=== PATIENT | male | born 1970 | race Two or more races ===

== ENCOUNTER 2019-05-22 12:18 | Emergency (ER) | payer OTHER ==
--- NOTE | 2019-05-22 12:21 | PDOC ---
Rapid Medical Evaluation Chief Complaint: Back Pain Medical Evaluation: Allergies Allergy/AdvReac Type Severity Reaction Status Date / Time No Known Allergies Allergy Verified 06/11/16 21:54 05/22/19 12:20 I have performed a brief in-person evaluation of this patient. The patient presents with a chief complaint of: standing a long time this weekend and now back pain, hx of pinched nerves Pertinent physical exam findings: ambulatory, uncomfortable appearing I have ordered the following:toradol The patient will proceed to the ED for further evaluation. Discharge Disposition - Diagnosis Back pain - Referrals - Patient Instructions - Post Discharge Activity
[2019-05-22 12:22] VITALS: BP 123/86; PULSE 65; TEMP 98; BMI 30.7
[2019-05-22] MEDS ORDERED: KETOROLAC TROMETHAMINE 60 MG/2 ML VIAL IM ONE (12:23)
[2019-05-22] MEDS ORDERED: diazePAM 5 MG TABLET PO ONE (13:30)
[2019-05-22] MEDS ORDERED: KETOROLAC TROMETHAMINE 30 MG/1 ML VIAL ONE (13:33)
--- NOTE | 2019-05-22 13:36 | PDOC ---
History of Present Illness - General Chief Complaint: Back Pain Stated Complaint: LOWER BACK PAIN Time Seen by Provider: 05/22/19 12:22 History Source: Patient Exam Limitations: No Limitations - History of Present Illness Initial Comments: 05/22/19 13:31 CHIEF COMPLAINT: Lower back pain HISTORY OF PRESENT ILLNESS: This is a 48-year-old male history of lumbar radiculopathy and lumbar disc herniations presents emergency department for evaluation of right-sided lower back pain which started 2 days ago. Patient reports prolonged episodes of standing Wednesday evening when the pain had started in his lower back. Patient reports taking 800 mg of Motrin which dropped his pain from a 10/10 to a 7/10. Patient also with left upper back pain which is localized to the trapezius area. Patient then denies any radiation of the pain, neurosensory deficits, incontinence of bladder or bowel, urinary retention, saddle anesthesia, foot drop, history of IV drug use or history of cancer. REVIEW OF SYSTEMS: GENERAL: Afebrile, denies any weakness RESPIRATORY: No cough, wheezing, or hemoptysis. CARDIAC: No chest pain or shortness of breath MUSCULOSKELETAL: Pain to generalized lower back. No point tenderness. Pain worse on right than left. SKIN : No erythema, no bruising, no deformity. GI/: Denies any abdominal pain, no urinary difficulty, incontinence or urinary retention. RECTAL: Denies any difficulty this A.m. NEUROLOGICAL: Denies any numbness or tingling. No neurosensory deficits. PHYSICAL EXAM: GENERAL: The patient is awake, alert, and fully oriented, in no acute distress. RESPIRATORY: Lungs clear bilaterally, no rhonchi wheezes or crackles CARDIAC: S1-S2 audible, no murmur rub or gallop MUSCULOSKELETAL: Pain to right lower back, nonradiating, no tingling or sensory deficit. Less than 2 second cap refill, +2 pedal pulses. No spinal point tenderness. Normal reflexive and no deficits to sensation or strength. Performs straight leg raises without difficulty. Palpable muscle spasm to right paraspinous muscles. GI/: Abdomen soft, nontender, nondistended. No rebound tenderness. No masses palpable. RECTAL: Deferred patient with no neurological findings SKIN: Warm, Dry, normal turgor, no erythema, no edema no bruising. 05/22/19 13:36 Past History - Past Medical History Allergies/Adverse Reactions: Allergies Allergy/AdvReac Type Severity Reaction Status Date / Time No Known Allergies Allergy Verified 05/22/19 12:22 Home Medications: Ambulatory Orders Glycerin [Permed Hair Shampoo] 180 ml TP DAILY #1 shampoo 05/02/15 Ibuprofen 800 mg PO TID #30 tablet 06/12/16 Methocarbamol [Robaxin -] 1,000 mg PO TID #42 tablet 05/22/19 COPD: No Other medical history: PINCHED NERVES - Suicide/Smoking/Psychosocial Hx Smoking Status: Yes Smoking History: Never smoked Number of Cigarettes Smoked Daily: 0 Information on smoking cessation initiated: No Hx Alcohol Use: No Drug/Substance Use Hx: No Substance Use Type: None *Physical Exam - Vital Signs Last Vital Signs Temp Pulse Resp BP Pulse Ox 98 F 65 19 123/86 95 05/22/19 12:20 05/22/19 12:20 05/22/19 12:20 05/22/19 12:20 05/22/19 12:20 Medical Decision Making - Medical Decision Making 05/22/19 13:37 A/P: 48-year-old male with right lumbar paraspinous muscle spasm and left trapezius muscle spasm Toradol 60 mg IM now Valium 5 mg orally now Reassess 05/22/19 14:13 Patient reports improvement in pain currently rating his pain 4/10. Patient is requesting discharge at this time. As patient is clinically improved I will discharge home with a prescription for Robaxin and instructions to take over-the -counter NSAID medication for pain relief. Patient has verbalized understanding of discharge instructions. Portions of this note have been documented using voice recognition software. As a result, errors may occur in the bus and rail operator process. Effort has been made to correct all grammatical and bus and rail operator error, but some may have been missed. *DC/Admit/Observation/Transfer Diagnosis at time of Disposition: Muscle spasm of back - Discharge Dispostion Disposition: HOME Condition at time of disposition: Stable Decision to Admit order: No - Prescriptions Prescriptions: Methocarbamol [Robaxin -] 1,000 mg PO TID #42 tablet - Referrals Referrals: Mike Velázquez MD [Primary Care Provider] - - Patient Instructions Additional Instructions: Rest, no heavy lifting or exercise until pain is resolved Hot soaks to neck and low back as often as possible/hot showers or Jacuzzis No massage or therapy until spasm is gone Continue naproxen 2-220 mg tablets every 12 hours for the next 3 days then as needed for pain and swelling Robaxin 1000mg every 8 hours as needed for spasm If not significant improvement within 24 hours with medication and rest regime, followup with private physician for change in medications and /or therapy. - Post Discharge Activity
== END 2019-05-22 14:49 | disposition home or self-care (01) ==
LOC: JERFT 12:18
PROC: 3E0233Z Introduction of Anti-inflammatory into Muscle, Percutaneous Approach (ICD-10-PCS; principal; 2019-05-22)
DX: M62.830 Muscle spasm of back (principal); M51.16 Intervertebral disc disorders with radiculopathy, lumbar region
CPT/HCPCS: 96372; 99281-25

== ENCOUNTER 2019-10-11 08:16 | Emergency (ER) | payer OTHER ==
[2019-10-11 08:21] VITALS: BP 120/84; PULSE 81; TEMP 97.9; BMI 31.4
--- NOTE | 2019-10-11 10:13 | PDOC ---
History of Present Illness - General Chief Complaint: Pain, Acute Stated Complaint: LT SIDE ABD PAIN Time Seen by Provider: 10/11/19 09:04 - History of Present Illness Initial Comments: 10/11/19 10:10 CHIEF COMPLAINT: abd pain HISTORY OF PRESENT ILLNESS: 48 yo M with hx of pinched nerve to lower back hx presents to ED with LLQ pain since x 3 days. Patient states the pain is alleviated when lying down, and is worse when sitting or standing. The pain is also reportedly alleviated with urination and defecation. Patient reports carrying heavy furniture last wednesday but did not feel any pain at the time. Per pt, he does remember starting to feel bad 5 days ago "like I ate something bad" but does not remember any pain at that time either. Patient reports a little nausea upon initial onset of symptoms but none at this time. Denies any fever, chills, vomiting, or diarrhea. No recent travel or sick contacts. PAST MEDICAL HISTORY: "pinched nerve" FAMILY HISTORY: Denies SOCIAL HISTORY: Denies tobacco, alcohol, illicit drug use. SURGICAL HISTORY: Denies ALLERGIES: No known drug allergies REVIEW OF SYSTEMS General/Constitutional: Denies fever or chills. Denies weakness, weight change. HEENT: Denies change in vision. Denies ear pain or discharge. Denies sore throat. Cardiovascular: Denies chest pain or shortness of breath. Respiratory: Denies cough, wheezing, or hemoptysis. Gastrointestinal: LLQ pain x 2 days. Denies nausea, vomiting, diarrhea or constipation. Denies rectal bleeding. Genitourinary: Denies dysuria, frequency, or change in urination. Musculoskeletal: Denies joint or muscle swelling or pain. Denies neck or back pain. Skin and breasts: Denies rash or easy bruising. Neurologic: Denies headache, vertigo, loss of consciousness, or loss of sensation. Psychiatric: Denies depression or anxiety. PHYSICAL EXAM General Appearance: Well-appearing, appropriately dressed. No apparent distress , no intoxication. HEENT: EOMI, PERRLA, normal ENT inspection, normal voice, TMs normal, pharynx normal. No conjunctival pallor. No photophobia, scleral icterus. Neck: Supple. Trachea midline. No tenderness, rigidity, carotid bruit, stridor , lymphadenopathy, or thyromegaly. Respiratory/Chest: Lungs CTAB. No shortness of breath, chest tenderness, respiratory distress, accessory muscle use. No crackles, rales, rhonchi, stridor , wheezing, dullness Cardiovascular: RRR. S1, S2. No JVD, murmur, bradycardia, tachycardia. Vascular Pulses: Dorsalis-Pedis (R): 2+, Dorsalis-Pedis (L): 2+ Gastrointestinal/Abdominal: Marked TTP to LLQ. Normal bowel sounds. Abdomen soft, non-distended. No tenderness or rebound tenderness. No organomegaly, pulsatile mass, guarding, hernia, hepatomegaly, splenomegaly. Lymphatic: No adenopathy, tenderness. Musculoskeletal/Extremities: +L CVA tenderness. Normal inspection. FROM of all extremities, normal capillary refill. Pelvis Stable. No CVA tenderness. No tenderness to extremities, pedal edema, swelling, erythema or deformity. Integumentary: Appropriate color, dry, warm. 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 Fully oriented, alert. Appropriate mood/affect. Motor strength 5/5. No appreciable EOM palsy, facial droop or sensory deficit. Past History - Past Medical History Allergies/Adverse Reactions: Allergies Allergy/AdvReac Type Severity Reaction Status Date / Time No Known Allergies Allergy Verified 10/11/19 08:21 Home Medications: Ambulatory Orders Ciprofloxacin HCl [Cipro] 500 mg PO BID #20 tablet 10/11/19 Metronidazole 500 mg PO TID #30 tablet 10/11/19 COPD: No GI Disorders: (fatty liver) - Psycho Social/Smoking Cessation Hx Smoking Status: Yes Smoking History: Never smoked Number of Cigarettes Smoked Daily: 0 Hx Alcohol Use: Yes Drug/Substance Use Hx: No Substance Use Type: None *Physical Exam - Vital Signs Last Vital Signs Temp Pulse Resp BP Pulse Ox 97.9 F 81 16 120/84 96 10/11/19 08:18 10/11/19 08:18 10/11/19 08:18 10/11/19 08:18 10/11/19 08:18 ED Treatment Course - LABORATORY CBC & Chemistry Diagram: 10/11/19 10:00 10/11/19 10:00 Medical Decision Making - Medical Decision Making 10/11/19 10:13 48 yo M with hx of LLq pain since wednesday, better when lying down, worse when sitting standing, alleviated with urination and defecation. -labs, urine -CTAP 10/11/19 15:10 CT suggestive of acute diverticulitis of distal descending colon w/o abscess. -Cipro/flagyl rx sent to pharm Pt to f/u with PCP and GI. Strict return return precautions give, patient and verbalized understanding and agree to plan. Discharge - Discharge Information Problems reviewed: Yes Clinical Impression/Diagnosis: Acute diverticulitis Condition: Stable Disposition: HOME - Admission No - Additional Discharge Information Prescriptions: Ciprofloxacin HCl [Cipro] 500 mg PO BID #20 tablet Metronidazole 500 mg PO TID #30 tablet - Follow up/Referral Referrals: Mike Velázquez MD [Primary Care Provider] - Kelton Funes MD [Staff Physician] - - Patient Discharge Instructions Patient Printed Discharge Instructions: DI for Diverticulitis Additional Instructions: Please take medications as prescribed; complete the entire course of antibiotics even if your symptoms improve. Follow up with Dr. Funes within the next week as discussed. If you develop worsening abdominal pain, fever, chills, nausea, vomiting, diarrhea, or any new or worsening symptoms, please return to the ER immediately. - Post Discharge Activity
[2019-10-11 11:03] LABS: BASO % 0.4 % (0-2.0); EOS % 1.6 % (0-4.5); HEMOGLOBIN 14.3 GM/dL (11.7-16.9); LYMPH % 17.6 % (8-40); MCH 28.6 pg (25.7-33.7); MCHC 33.2 g/dl (32.0-35.9); MEAN CELL VOLUME 86.2 fl (80-96); MEAN PLT VOLUME 9.8 fl (7.5-11.1); MONO % 9.9 % (3.8-10.2); NEUT % 70.5 % (42.8-82.8); PLATELET COUNT 168 K/MM3 (134-434); RBC 4.98 M/mm3 (4.00-5.60); RDW 14.8 % (11.9-15.9); WHITE BLOOD COUNT 11.3 K/mm3 (4.0-10.0)
[2019-10-11 11:30] LABS: ALBUMIN 3.6 g/dl (3.4-5.0); BILIRUBIN,TOTAL 1.1 mg/dL (0.2-1); BLOOD UREA NITROGEN 14.6 mg/dL (7-18); CALCIUM 9.2 mg/dL (8.5-10.1); TOT PROT 7.4 g/dl (6.4-8.2)
[2019-10-11] MEDS ORDERED: KETOROLAC TROMETHAMINE 30 MG/1 ML VIAL IVPUSH ONE (13:01)
[2019-10-11] MEDS ORDERED: KETOROLAC TROMETHAMINE 30 MG/1 ML VIAL ONE (13:35)
[2019-10-11] MEDS ORDERED: KETOROLAC TROMETHAMINE 15 MG/ML VIAL ONE (13:43)
[2019-10-11 14:08] LABS: PH,URINE 7.5 (5.0-8.0); URINE APPEARANCE CLEAR; URINE BILIRUBIN NEGATIVE (NEGATIVE); URINE COLOR YELLOW; URINE GLUCOSE (UA) NEGATIVE (NEGATIVE); URINE KETONE NEGATIVE (NEGATIVE); URINE LEUK ESTERASE NEGATIVE (NEGATIVE); URINE NITRITE NEGATIVE (NEGATIVE); URINE PROTEIN NEGATIVE (NEGATIVE)
== END 2019-10-11 13:51 | disposition home or self-care (01) ==
LOC: JER 08:16
PROC: 3E0333Z Introduction of Anti-inflammatory into Peripheral Vein, Percutaneous Approach (ICD-10-PCS; principal; 2019-10-11)
DX: K57.92 Diverticulitis of intestine, part unspecified, without perforation or abscess without bleeding (principal); K76.0 Fatty (change of) liver, not elsewhere classified
CPT/HCPCS: 36415; 74177-TC; 80053; 81003; 83690; 85025; 87086; 96374; 99285-25

== ENCOUNTER 2020-06-13 16:55 | Inpatient (IN) | payer OTHER ==
--- OUTSIDE RECORDS SUMMARY | 2020-06-13 17:16 | XMS ---
:1970 Author Organization [facility] Support Name Relationship Address Phone SE Unavailable Unavailable Unavailable CESAR BRAXTON [address] [place] [address] TATYANA COWART SISTER [address] [place] [address] MANOJ HARPER Unavailable [address] [place] [address] Re-disclosure Warning The records that you are about to access may contain information from federally- assisted alcohol or drug abuse programs. If such information is present, then the following federally mandated warning applies: This information has been disclosed to you from records protected by federal confidentiality rules (42 CFR part 2). The federal rules prohibit you from making any further disclosure of this information unless further disclosure is expressly permitted by the written consent of the person to whom it pertains or as otherwise permitted by 42 CFR part 2. A general authorization for the release of medical or other information is NOT sufficient for this purpose. The Federal rules restrict any use of the information to criminally investigate or prosecute any alcohol or drug abuse patient.The records that you are about to access may contain highly sensitive health information, the redisclosure of which is protected by Article 27-F of the [facility] Public Health law. If you continue you may haveaccess to information: Regarding HIV / AIDS; Provided by facilities licensed or operated by the [facility] Office of Mental Health; or Provided by the [facility] Office for People With Developmental Disabilities. If such information is present, then the following [facility] mandated warning applies: This information has been disclosed to you from confidential records which are protected by state law. State law prohibits you from making any further disclosure of this information without the specific written consent of the person to whom it pertains, or as otherwise permitted by law. Any unauthorized further disclosure in violation of state law may result in a fine or longterm sentence or both. A general authorization for the release of medical or other information is NOT sufficient authorization for further disclosure. Encounters Encounter Providers Location Date Indications Data Source(s ) Outpatient [facility] 06/09/2019 eCW3 ([facility] A28 12:00:00 AM Health Care) EDT - 06/09/2019 12:00:00 AM EDT Immunizations Vaccine Date Status Description Data Source(s) New in 2011. IIV4 06/09/2019 02:08:00 completed eC W3 ([facility] EDT Health Care) Medications Medication Brand Start Product Dose Route Administrative Pharmacy [facility] Indications Reaction Description Data Name Date Form Instructions Instructions Source(s) Amoxicillin Amoxic .0 active Amoxici llin- eCW3 875 MG / illin- 2020 {tabl Pot ([facility] Clavulanate Pot 12:00: et} Clavulanate [place] 125 MG Oral Clavul 00 AM 875-125 MG Health Tablet anate EDT Care) Amoxicillin 875-12 -Pot 5 MG Clavulanate 875-125 MG Amoxicillin Amoxic .0 active Amoxici llin- eCW3 875 MG / illin- 2020 {tabl Pot ([facility] Clavulanate Pot 12:00: et} Clavulanate [place] 125 MG Oral Clavul 00 AM 875-125 MG Health Tablet anate EDT Care) Amoxicillin 875-12 -Pot 5 MG Clavulanate 875-125 MG 24 HR Fexofe .0 active Fexofenadine eCW3 Fexofenadin bridger 2019 {tabl -Pseudoeph ed ([facility] e -Pseud 12:00: et} ER 180-240 [place] hydrochlori oephed 00 AM MG Healt h de 180 MG / ER EDT Care) Pseudoephed 180-24 rine 0 MG Hydrochlori de 240 MG Extended Release Oral Tablet Fexofenadin e-Pseudoeph ed ER 180-240 MG pantoprazol Pantop 1.0 active Pantopr azole eCW3 e 40 MG razole 2019 {tabl Sodium 40 MG ( [facility] Delayed Sodium 12:00: et} [place] Release 40 MG 00 AM Health Oral Tablet EST Care) Pantoprazol e Sodium 40 MG Insurance Providers Payer name Policy type Policy ID Covered Covered constitution party's Policy P zehra / Coverage constitution party ID relationship to Fernandez Inf ormation type fernandez RAYSA [id number] HEALTH NON CAP Problems, Conditions, and Diagnoses Code Display Name Description Problem Type Effective Data Sour ce(s) Dates K57.92 Diverticulitis of Acute Problem 10/17/2019 eCW3 ([place] colon diverticulitis 12:00:00 AM [facility] EST Care) M51.26 Lumbar disc Lumbar disc Problem 10/08/2019 eCW3 ([place] herniation herniation 12:00:00 AM [facility]) M51.9 Lumbar disc disease Lumbar disc disease Problem 019 eCW3 [facility] [facility] Results ID Date Data Source [id number] 01/10/2020 12:00:00 AM EDT [facility] Name Value Range Interpretation Code Description Data Nadia rce(s) Supporting Document(s ) COV2 [facility] This lab was ordered by AGUSTIN and cornel teixeira by [facility]. Procedure Social History Code Duration Value Status Description Data Source(s ) Smoking 01/03/2020 12:00:00 Never Smoker completed Never Smoker e CW3 ([facility]) Vital Signs ID Date Data Source UNK Name Value Range Interpretation Code Description Data Source(s) Diastolic blood 73 mm[Hg] 73 mm[Hg] eCW3 ([facility]) Systolic blood 106 mm[Hg] 106 mm[Hg] eCW3 ([facility]) Body temperature 98.7 [degF] 98.7 [degF] eCW3 ( [facility]) Body mass index 31.63 kg/m2 31.63 kg/m2 eCW3 ([facility] (BMI) [Ratio] [facility]) Body weight 196 [lb_av] 196 [lb_av] eCW3 ([facility]) Body height 66 [in_i] 66 [in_i] eCW3 ([facility])
[2020-06-13] MEDS ORDERED: LACTATED RINGERS SOLUTION 1000 ML INFUS.BAG IV ONE (17:28)
[2020-06-13] MEDS ORDERED: CEFTRIAXONE 1 GM in DEXTROSE 5%-WATER - 100 ML IVPB ONE (17:29)
[2020-06-13] MEDS ORDERED: morphine CARPU-JECT 4 MG/1 ML DISP.SYRIN IVPUSH ONE ×2 (17:29→21:05)
[2020-06-13] MEDS ORDERED: ONDANSETRON 4 MG/2 ML VIAL IVPB ONE (17:31)
[2020-06-13] MEDS ORDERED: MORPHINE SULFATE 2 MG/ML VIAL ONE ×2 (17:54→21:14)
[2020-06-13] MEDS ORDERED: CEFTRIAXONE 1 GM/50 ML BAG ONE (17:54)
--- NOTE | 2020-06-13 18:04 | PDOC ---
History of Present Illness - General Chief Complaint: Pain, Acute Stated Complaint: EVALUATION Time Seen by Provider: 06/13/20 17:46 History Source: Patient Exam Limitations: No Limitations - History of Present Illness Initial Comments: 06/13/20 17:54 49 y.o. M PMHx GERD Presenting due to abdominal pain. Patient states he saw Dr. Funes who sent him to the ED. He has been having left lower quadrant abdominal pain that started yesterday, has been constant and is worse when standing of walking around. He denies any episodes of emesis, chest pain, sob, diarrhea, chills or fever. He stated he had one episode of diverticulitis a year ago that he was admitted for. PCP: Dr. Hagan Specialist: Dr. Funes PMHx:GERD Meds: In Chart Allergies: NKA 06/13/20 18:20 Is this a multiple visit Asthma Patient?: No Timing/Duration: 24 hours Severity: moderate Past History - Medical History Allergies/Adverse Reactions: Allergies Allergy/AdvReac Type Severity Reaction Status Date / Time No Known Allergies Allergy Verified 06/13/20 17:31 Home Medications: Ambulatory Orders NK [No Known Home Medication] 06/13/20 COPD: No GI Disorders: (fatty liver) - Psycho-Social/Smoking History Smoking Status: Yes Smoking History: Never smoked Number of Cigarettes Smoked Daily: 0 - Substance Abuse Hx (Audit-C & DAST Scrn) How often the patient has a drink containing alcohol: Never Score: In Men: 4 or > Positive; In Women: 3 or > Positive: 0 Screen Result (Pos requires Nsg. Audit-10AR): Negative In the last yr the pt used illegal drug/Rx for NonMed reason: No Score: Yes response is considered Positive: 0 Screen Result (Positive result requires Nsg. DAST-10): Negative Review of Systems - Review of Systems Able to Perform ROS?: Yes Is the patient limited [place] proficient: No Constitutional: No: Chills, Fever HEENTM: No: Blurred Vision, Double Vision Respiratory: No: Cough, Shortness of Breath Cardiac (ROS): No: Chest Pain, Lightheadedness ABD/GI: No: Constipated, Diarrhea, Nausea, Vomiting : No: Burning, Dysuria Musculoskeletal: No: Back Pain, Muscle Pain Integumentary: No: Bruising, Dryness, Rash Neurological: No: Headache, Numbness, Dizziness Hematologic/Lymphatic: No: Blood Clots, Easy Bruising *Physical Exam - Vital Signs Last Vital Signs Temp Pulse Resp BP Pulse Ox 98.6 F 87 18 120/82 97 06/13/20 17:02 06/13/20 17:02 06/13/20 17:02 06/13/20 17:02 06/13/20 17:02 - Physical Exam General Appearance: Yes: Nourished, Appropriately Dressed. No: Apparent Distress Respiratory/Chest: positive: Lungs Clear, Normal Breath Sounds. negative: Chest Tender, Respiratory Distress, Accessory Muscle Use, Crackles, Rales, Stridor, Wheezing Cardiovascular: positive: Regular Rhythm, Regular Rate. negative: Edema, JVD, Murmur Gastrointestinal/Abdominal: positive: Normal Bowel Sounds, Tender (LLQ), Flat, Soft, Tenderness. negative: Guarding, Rebound Musculoskeletal: positive: Normal Inspection. negative: CVA Tenderness Extremity: positive: Normal Inspection. negative: Tender, Swelling, Calf Tenderness Integumentary: positive: Normal Color, Dry, Warm. negative: Rash, Swelling Neurologic: positive: Fully Oriented, Alert, Normal Mood/Affect, Normal Response ED Treatment Course - LABORATORY CBC & Chemistry Diagram: 06/13/20 17:45 06/13/20 17:45 Medical Decision Making - Medical Decision Making 06/13/20 18:07 49 y.o. M PMHx GERD Presenting due to abdominal pain. DDx: Diverticulitis, IBD, Gasstritis, appendicitis, pancreatitis Labs: WBC 10.1, Na 139, K 3.7, Cr 1.1 CT: Acute uncomplicated diverticulitis noted in the left colon, diffuse hepatic steatosis CXR: No acute chest pathology UA: WNL EKG: NSR, QTc 428ms, rate 65 Dispo: Admission 06/13/20 21:02 Discharge - Discharge Information Problems reviewed: Yes Clinical Impression/Diagnosis: Acute diverticulitis Condition: Stable - Admission Yes - Follow up/Referral Referrals: Nayeli Hagan MD [Primary Care Provider] - - Patient Discharge Instructions - Post Discharge Activity
[2020-06-13 18:36] LABS: BASO % 0.4 % (0-2.0); EOS % 1.9 % (0-4.5); HEMATOCRIT 40.6 % (35.4-49); HEMOGLOBIN 13.6 GM/dL (11.7-16.9); LYMPH % 21.4 % (8-40); MCH 28.4 pg (25.7-33.7); MCHC 33.6 g/dl (32.0-35.9); MEAN CELL VOLUME 84.6 fl (80-96); MEAN PLT VOLUME 9.5 fl (7.5-11.1); MONO % 8.7 % (3.8-10.2); NEUT % 67.6 % (42.8-82.8); PLATELET COUNT 147 K/MM3 (134-434); RBC 4.79 M/mm3 (4.00-5.60); RDW 14.6 % (11.9-15.9); WHITE BLOOD COUNT 10.1 K/mm3 (4.0-10.0)
[2020-06-13 18:45] LABS: INR 1.09 (0.83-1.09); PROTHROMBIN TIME (PATIENT) 13.1 SEC (9.7-13.0)
[2020-06-13 18:48] LABS: ACTIVATED PTT 29.6 SECONDS (25.2-36.5)
[2020-06-13 18:58] LABS: ALBUMIN 3.7 g/dl (3.4-5.0); BILIRUBIN,TOTAL 0.7 mg/dL (0.2-1); BLOOD UREA NITROGEN 17.1 mg/dL (7-18); CALCIUM 8.7 mg/dL (8.5-10.1); CREATININE 1.1 mg/dL (0.55-1.3); POTASSIUM 3.7 mmol/L (3.5-5.1)
--- NOTE | 2020-06-13 20:00 | PDOC ---
Documentation entered by Hortensia Quiñones SCRIBE, acting as scribe for Aurea Diggs DO. Aurea Diggs, DO: This documentation has been prepared by the Nuria russell Xhesika, SCRIBE, under my direction and personally reviewed by me in its entirety. I confirm that the documentation accurately reflects all work, treatment, procedures, and medical decision making performed by me. Attending Attestation - Resident Resident Name: Rodolfo Chavez - ED Attending Attestation I have performed the following: I have examined & evaluated the patient, The case was reviewed & discussed with the resident, I agree w/resident's findings & plan, Exceptions are as noted - HPI HPI: 06/13/20 17:48 49y/o M with a PMH of fatty liver, diverticulitis and pinched nerve who presents to the ED for 1 days of constant LLQ abdominal pain. Pt states his pain is worse when standing. The patient was sent in by Dr. Funes for admission and abx to r/o diverticulitis. Pt states he had a similar episode a year ago. Allergies: NKDA PCP: Dr. Hale - Physicial Exam PE: 06/13/20 17:51 GENERAL: Awake, alert, and fully oriented, in no acute distress HEAD: No signs of trauma EYES: PERRLA, EOMI, sclera anicteric, conjunctiva clear ENT: Auricles normal inspection, hearing grossly normal, nares patent, oropharynx clear without exudates. Moist mucosa NECK: Normal ROM, supple, no lymphadenopathy, JVD, or masses LUNGS: Breath sounds equal, clear to auscultation bilaterally. No wheezes, and no crackles HEART: Regular rate and rhythm, normal S1 and S2, no murmurs, rubs or gallops ABDOMEN: + Mild L CVA tenderness. +LLQ tenderness. + mild guarding. Soft, normoactive bowel sounds. EXTREMITIES: Normal range of motion, no edema. No clubbing or cyanosis. No cords, erythema, or tenderness NEUROLOGICAL: Cranial nerves II through XII grossly intact. SKIN: Warm, Dry, normal turgor, no rashes lesions noted. - Medical Decision Making 06/13/20 19:56 a/p: 49yo male sent from Dr. Funes for eval of LLQ pain -hx of diverticular disease -pain since last night -will send labs, ekg, ct abd/pelvis -Dr. Funes requests iv abx -pt also with cva ttp -will send ua -will monitor, npo, and reassess 06/13/20 20:00 labs reviewed ua pending wbc 10 06/13/20 20:06 cxr clear 06/13/20 20:56 pt with acute diverticulitis iv abx given microblog sent to [facility] covering dr. 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
[2020-06-13 20:31] LABS: URINE APPEARANCE CLEAR; URINE BILIRUBIN NEGATIVE (NEGATIVE); URINE COLOR YELLOW; URINE GLUCOSE (UA) NEGATIVE (NEGATIVE); URINE KETONE NEGATIVE (NEGATIVE); URINE LEUK ESTERASE NEGATIVE (NEGATIVE); URINE NITRITE NEGATIVE (NEGATIVE); URINE PROTEIN NEGATIVE (NEGATIVE); URINE UROBILINOGEN 0.2 mg/dL (0.2-1.0)
[2020-06-13] MEDS ORDERED: ONDANSETRON 4 MG/2 ML VIAL IVPUSH ONE (21:05)
--- OUTSIDE RECORDS SUMMARY | 2020-06-13 21:42 | XMS ---
:1970 Author Organization [facility] Support Name Relationship Address Phone SE, SELF-EMPLOYED Unavailable Unavailable Unavailable SE Unavailable Unavailable Unavailable CESAR BRAXTON [address] [place] [address] TATYANA COWART SISTER [address] [place] [address] MANOJ HARPER Unavailable [address] [place] [place] [address] Re-disclosure Warning The records that you are [...] is protected by Article 27-F of the [facility] Public Health law. If you continue you may haveaccess to information: Regarding HIV / AIDS; Provided by facilities licensed or operated by the [facility] Office of Mental Health; or Provided by the [facility] Office for People With Developmental Disabilities. If such information is present, then the following [facility] mandated warning applies: This information has been [...] law may result in a fine or senior care sentence or both. A general authorization for the release of medical or other information is NOT sufficient authorization for further disclosure. Encounters Encounter Providers Location Date Indications Data Source(s ) Outpatient [facility] 06/09/2019 eCW3 ([facility] A28 12:00:00 AM Health Care) EDT - 06/09/2019 12:00:00 AM EDT Immunizations Vaccine Date Status Description Data Source(s) New in 2011. IIV4 06/09/2019 02:08:00 completed eC W3 ([facility] PM EDT Health Care) Medications Medication Brand Start Product Dose Route Administrative Pharmacy [facility] Indications Reaction Description Data Name Date Form [...] name Policy type Policy ID Covered Covered democrat's Policy P zehra / Coverage democrat ID relationship to Fernandez Inf ormation type fernandez RAYSA [id number] HEALTH NON CAP Problems, Conditions, and Diagnoses Code Display Name Description Problem Type Effective Data Sour ce(s) Dates K57.92 Diverticulitis of Acute Problem 10/17/2019 eCW3 ([facility] colon diverticulitis 12:00:00 AM [facility] EST [facility]) M51.26 Lumbar disc Lumbar disc Problem 10/08/2019 eCW3 ([place] herniation herniation 12:00:00 AM [facility]) M51.9 Lumbar disc disease Lumbar disc disease Problem 019 eCW3 ([place] 12:00:00 AM [facility]) Results ID Date Data Source [id number] 01/10/2020 12:00:00 AM EDT [facility] Name Value Range Interpretation Code Description Data Nadia rce(s) Supporting Document(s ) COV2 [facility] This lab was ordered by AGUSTIN and cornel teixeira by [facility]. Procedure Social History Code Duration Value Status Description Data Source(s ) Smoking 01/03/2020 12:00:00 Never Smoker completed Never Smoker e CW3 ([facility]) Vital Signs ID Date Data Source UNK Name Value Range Interpretation Code Description Data Source(s) Diastolic blood 73 mm[Hg] 73 mm[Hg] eCW3 ([facility]) Systolic blood 106 mm[Hg] 106 mm[Hg] eCW3 ([facility]) Body temperature 98.7 [degF] 98.7 [degF] eCW3 ( [facility]) Body mass index 31.63 kg/m2 31.63 kg/m2 eCW3 ([facility] (BMI) [Ratio] [facility]) Body weight 196 [lb_av] 196 [lb_av] eCW3 ([facility]) Body height 66 [in_i] 66 [in_i] eCW3 ([facility])
--- NOTE | 2020-06-13 22:05 | HP ---
Admitting History and Physical - Primary Care Physician PCP: Nayeli Hagan - Admission Chief Complaint: LLQ Pain History of Present Illness: This is a 49 y/o male with a significant PMHx of Diverticulitis (2019), GERD, Fatty Liver. Who presents to the ED sent in from Dr Funes's office for LLQ pain. Patient reports having squeezing progressive pain increased on movement with nausea and belching x last night. Patient reports having a brief episode of diaphoresis and frontal headache the day before- now resolved. Patient reports eating pizza for dinner yesterday. Patient denies fever, chills, cough, SOB, dizziness, CP, palpitations, vomiting, diarrhea, constipation, melena, hematochezia, hematuria, dysuria. Patient denies recent sick contacts or travel. 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 History of Recent Travel: No Home Medications - Allergies Allergies/Adverse Reactions: Allergies Allergy/AdvReac Type Severity Reaction Status Date / Time No Known Allergies Allergy Verified 06/13/20 17:31 - Home Medications Home Medications: Ambulatory Orders NK [No Known Home Medication] 06/13/20 Family Medical History Family History: As Documented Family Hx Coronary Artery Disease: Mother, Father (HTN) Family Hx Diabetes: Father Review of Systems - Review of Systems Constitutional: reports: Diaphoresis Eyes: reports: No Symptoms HENT: reports: No Symptoms Neck: reports: No Symptoms Cardiovascular: reports: No Symptoms Respiratory: reports: No Symptoms Gastrointestinal: reports: Abdominal Pain, Nausea Genitourinary: reports: No Symptoms Breasts: reports: No Symptoms Reported Musculoskeletal: reports: No Symptoms Integumentary: reports: No Symptoms Neurological: reports: Headache Endocrine: reports: No Symptoms Hematology/Lymphatic: reports: No Symptoms Psychiatric: reports: No Symptoms Pain Intensity: 9 Physical Examination Vital Signs: Vital Signs Temperature 98.6 F 06/13/20 17:02 Pulse Rate 87 06/13/20 17:02 Respiratory Rate 18 06/13/20 17:02 Blood Pressure 120/82 06/13/20 17:02 O2 Sat by Pulse Oximetry (%) 97 06/13/20 17:02 Constitutional: Yes: Mild Distress, Obese Eyes: Yes: Conjunctiva Clear, EOM Intact, PERRL HENT: Yes: Atraumatic, Normocephalic, Other (Dry Mucousa) Cardiovascular: Yes: WNL, Regular Rate and Rhythm, S1, S2 Respiratory: Yes: WNL, Regular, CTA Bilaterally Gastrointestinal: Yes: Normal Bowel Sounds, Soft, Abdomen, Obese, Tenderness (RLQ, LLQ) Renal/: Yes: WNL Breast(s): Yes: WNL Musculoskeletal: Yes: Back Pain Extremities: Yes: WNL Edema: No Peripheral Pulses WNL: Yes Integumentary: Yes: WNL Neurological: Yes: WNL, Alert, Oriented, Cran Nerves II-XII Intact ...Motor Strength: WNL Psychiatric: Yes: WNL, Alert, Oriented Labs: CBC, BMP 06/13/20 17:45 06/13/20 17:45 Intake & Output 06/10/20 06/11/20 06/12/20 06/13/20 23:59 23:59 23:59 23:59 Weight 84.368 kg Laboratory Results - last 24 hr 06/13/20 06/13/20 06/13/20 17:45 17:45 17:45 WBC 10.1 H RBC 4.79 Hgb 13.6 Hct 40.6 MCV 84.6 MCH 28.4 MCHC 33.6 RDW 14.6 Plt Count 147 MPV 9.5 Absolute Neuts (auto) 6.8 Neutrophils % 67.6 Lymphocytes % 21.4 D Monocytes % 8.7 Eosinophils % 1.9 Basophils % 0.4 Nucleated RBC % 0 PT with INR 13.10 H INR 1.09 PTT (Actin FS) 29.6 Sodium 139 Potassium 3.7 Chloride 107 Carbon Dioxide 27 Anion Gap 5 L BUN 17.1 Creatinine 1.1 Est GFR (CKD-EPI)AfAm 90.88 Est GFR (CKD-EPI)NonAf 78.41 Random Glucose 113 H Lactic Acid Calcium 8.7 Total Bilirubin 0.7 AST 23 ALT 38 Alkaline Phosphatase 107 Total Protein 7.0 Albumin 3.7 Urine Color Urine Appearance Urine pH Ur Specific Premium Urine Protein Urine Glucose (UA) Urine Ketones Urine Blood Urine Nitrite Urine Bilirubin Urine Urobilinogen Ur Leukocyte Esterase Blood Type Antibody Screen 06/13/20 06/13/20 06/13/20 17:45 17:45 20:06 WBC RBC Hgb Hct MCV MCH MCHC RDW Plt Count MPV Absolute Neuts (auto) Neutrophils % Lymphocytes % Monocytes % Eosinophils % Basophils % Nucleated RBC % PT with INR INR PTT (Actin FS) Sodium Potassium Chloride Carbon Dioxide Anion Gap BUN Creatinine Est GFR (CKD-EPI)AfAm Est GFR (CKD-EPI)NonAf Random Glucose Lactic Acid 0.7 Calcium Total Bilirubin AST ALT Alkaline Phosphatase Total Protein Albumin Urine Color Yellow Urine Appearance Clear Urine pH 7.0 Ur Specific Premium 1.037 H Urine Protein Negative Urine Glucose (UA) Negative Urine Ketones Negative Urine Blood Negative Urine Nitrite Negative Urine Bilirubin Negative Urine Urobilinogen 0.2 Ur Leukocyte Esterase Negative Blood Type O POSITIVE Antibody Screen Negative Imaging - Results Cat Scan: Report Reviewed, Image Reviewed Problem List - Problems (1) Acute diverticulitis Assessment/Plan: CTAP- Acute Diverticulitis Mild leukocytosis Continue Ceftriaxone, Flagyl Appreciate GI consult Continue IVF Morphine Sulfate, Zofran prn Monitor CBC, CMP Monitor vitals Code(s): K57.92 - DVTRCLI OF INTEST, PART UNSP, W/O PERF OR ABSCESS W/O BLEED (2) Abdominal pain Assessment/Plan: Likely secondary to Diverticulitis see above Code(s): R10.9 - UNSPECIFIED ABDOMINAL PAIN (3) GERD (gastroesophageal reflux disease) Assessment/Plan: Continue PPI Code(s): K21.9 - GASTRO-ESOPHAGEAL REFLUX DISEASE WITHOUT ESOPHAGITIS (4) Encounter for screening laboratory testing for COVID-19 virus Assessment/Plan: Low Risk COVID PCR-pending Isolation Precautions Code(s): Z20.828 - CONTACT W AND EXPOSURE TO OTH VIRAL COMMUNICABLE DISEASES Assessment/Plan This is a 49 y/o male with a significant PMHx of Diverticulitis (2018), GERD, Fatty Liver. Admitted for Acute Diverticulitis, Abdominal Pain for further evaluation of their emergent condition. Plan: See Problem List FEN NS@100ml/hr Replete lytes prn Clear Liquid Diet DVT ppx OOB SCDs Lovenox SQ Code Status: Full Code Dispo: Requires Inpatient Care Visit type - Emergency Visit Emergency Visit: Yes ED Registration Date: 06/13/20 Care time: The patient presented to the Emergency Department on the above date and was hospitalized for further evaluation of their emergent condition. - New Patient This patient is new to me today: Yes Date on this admission: 06/13/20 - Critical Care Critical Care patient: No
[2020-06-13] MEDS ORDERED: SODIUM CHLORIDE 1,000 ML IV SCH (22:15)
[2020-06-14] MEDS ORDERED: ONDANSETRON 4 MG/2 ML VIAL IVPUSH PRN (03:00)
[2020-06-14] MEDS ORDERED: MORPHINE SULFATE 2 MG/ML VIAL ONE ×2 (03:58→13:01)
[2020-06-14] MEDS: MORPHINE SULFATE 2 MG/ML VIAL IVPUSH PRN ×2 (04:07→22:23)
[2020-06-14 06:40] LABS: BASO % 0.4 % (0-2.0); EOS % 1.2 % (0-4.5); HEMATOCRIT 40.5 % (35.4-49); HEMOGLOBIN 13.3 GM/dL (11.7-16.9); LYMPH % 18.9 % (8-40); MCH 27.6 pg (25.7-33.7); MCHC 32.7 g/dl (32.0-35.9); MEAN CELL VOLUME 84.3 fl (80-96); MEAN PLT VOLUME 9.3 fl (7.5-11.1); MONO % 8.5 % (3.8-10.2); PLATELET COUNT 144 K/MM3 (134-434); RBC 4.81 M/mm3 (4.00-5.60); RDW 14.8 % (11.9-15.9); WHITE BLOOD COUNT 11.4 K/mm3 (4.0-10.0)
[2020-06-14 07:12] LABS: ALBUMIN 3.5 g/dl (3.4-5.0); BILIRUBIN,TOTAL 1.6 mg/dL (0.2-1); CALCIUM 8.5 mg/dL (8.5-10.1); POTASSIUM 3.9 mmol/L (3.5-5.1)
--- NOTE | 2020-06-14 09:05 | PN ---
Progress Note, Physician - Current Medication List Current Medications: Active Medications Enoxaparin Sodium (Lovenox -) 40 mg SQ DAILY JASKARAN Sodium Chloride (Normal Saline -) 1,000 mls @ 75 mls/hr IV ASDIR JASKARAN Last Admin: 06/13/20 22:29 Dose: 75 mls/hr Documented by: Ceftriaxone Sodium 2 gm/ (Dextrose) 100 mls @ 200 mls/hr IVPB DAILY JASKARAN; Protocol Metronidazole (Flagyl 500mg Premixed Ivpb -) 500 mg in 100 mls @ 100 mls/hr IVPB Q8H-IV JASKARAN Last Admin: 06/14/20 04:07 Dose: 100 mls/hr Documented by: Morphine Sulfate (Morphine Sulfate) 2 mg IVPUSH Q6H PRN PRN Reason: PAIN LEVEL 7 - 10 Last Admin: 06/14/20 04:07 Dose: 2 mg Documented by: Ondansetron HCl (Zofran Injection) 4 mg IVPUSH Q6H PRN PRN Reason: NAUSEA AND/OR VOMITING Last Admin: 06/14/20 04:07 Dose: 4 mg Documented by: Pantoprazole Sodium (Protonix Iv) 40 mg IVPUSH DAILY [facility] - Objective Vital Signs: Vital Signs Temperature 98.3 F 06/14/20 06:00 Pulse Rate 75 06/14/20 06:00 Respiratory Rate 18 06/14/20 06:00 Blood Pressure 111/70 06/14/20 06:00 O2 Sat by Pulse Oximetry (%) 95 06/14/20 06:00 Cardiovascular: Yes: Regular Rate and Rhythm Respiratory: Yes: Regular, CTA Bilaterally Gastrointestinal: Yes: Normal Bowel Sounds, Soft, Tenderness (LLQ) Labs: CBC, BMP 06/14/20 05:45 06/14/20 05:45 INR, PTT INR 1.09 (0.83-1.09) 06/13/20 17:45 Problem List - Problems (1) Acute diverticulitis Assessment/Plan: CTAP- Acute Diverticulitis Mild leukocytosis Continue Ceftriaxone, Flagyl ID and GI consult Continue IVF Morphine Sulfate, Zofran prn Monitor CBC, CMP Monitor vitals COVID PCR-pending Isolation Precautions Code(s): K57.92 - DVTRCLI OF INTEST, PART UNSP, W/O PERF OR ABSCESS W/O BLEED (2) GERD (gastroesophageal reflux disease) Assessment/Plan: on ppi Code(s): K21.9 - GASTRO-ESOPHAGEAL REFLUX DISEASE WITHOUT ESOPHAGITIS
[2020-06-14] MEDS ORDERED: CEFTRIAXONE 2 GM/100 ML BAG IVPB ONE (09:32)
[2020-06-14] MEDS ORDERED: PANTOPRAZOLE SODIUM 40 MG VIAL ONE (09:33)
[2020-06-14] MEDS ORDERED: ENOXAPARIN NA (PORCINE) 40 MG/0.4 ML DISP.SYRIN SQ ONE (09:33)
[2020-06-14] MEDS: PANTOPRAZOLE SODIUM 40 MG VIAL IVPUSH SCH (10:11)
[2020-06-14] MEDS: ENOXAPARIN NA (PORCINE) 40 MG/0.4 ML DISP.SYRIN SQ SCH (10:11)
[2020-06-14] MEDS: CEFTRIAXONE 2 GM in DEXTROSE 5%-WATER 100 ML IVPB SCH (10:15)
--- NOTE | 2020-06-14 13:51 | EKG ---
Test Reason : Blood Pressure : / mmHG Vent. Rate : 065 BPM Atrial Rate : 065 BPM P-R Int : 164 ms QRS Dur : 076 ms QT Int : 412 ms P-R-T Axes : 039 009 026 degrees QTc Int : 428 ms NORMAL SINUS RHYTHM NORMAL ECG NO PREVIOUS ECGS AVAILABLE Confirmed by CHERELLE RODRIGUES MD ([id number]) on 06/14/2020 1:50:54 PM Referred By: Confirmed By:CHERELLE RODRIGUES MD
--- NOTE | 2020-06-14 14:05 | PN ---
Progress Note (short form) - Note Progress Note: ID CONSULT DICTATED ACUTE UNCOMPLICATED DIVERTICULITIS R/O SEPSIS SECONDARY TO DIVERTICULITIS AWAIT C/S CONTINUE EMPIRIC CEFTRIAXONE/ FLAGYL
--- NOTE | 2020-06-14 16:23 | CONS ---
DATE OF CONSULTATION: DATE OF DICTATION: 06/14/2020 INFECTIOUS DISEASE CONSULTATION HISTORY OF PRESENT ILLNESS: The patient is a 49-year-old male with a history of diverticulosis and diverticulitis 1 year ago, now readmitted with recurrent diverticulitis. He presented to the emergency room on June 13, 2020, with a 1-day history of worsening left lower quadrant abdominal pain. 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 Patient complained of some nausea, denies any vomiting. Reports having a normal bowel movement approximately 2 days prior to admission. The pain is exacerbated by movement. He denies any associated fever or chills. PAST MEDICAL HISTORY: Positive for diverticulitis, gastroesophageal reflux. ALLERGIES: No known allergies. MEDICATION: Include: 1. Ceftriaxone. 2. Flagyl. 3. Lovenox. 4. Morphine. 5. Protonix. SOCIAL HISTORY: Lives in the community. Nonsmoker. Occasional ETOH. LABORATORY DATA: White count 11.4, hematocrit 40.5, platelets 144. Creatinine 1.0. Liver enzymes: total bilirubin 1.6, alkaline phosphatase 84, AST 19, ALT 32. Urinalysis negative. CAT scan recurrent acute uncomplicated diverticulitis involving the left colon. Cultures pending. PHYSICAL EXAMINATION: General: On physical examination, he is supine in bed. He is in no acute distress. Vital signs: Temperature 98.3, blood pressure 122/75, pulse 78 regular, respirations 18 per minute. HEENT: Sclerae anicteric. Cardiovascular: Heart sounds S1, S2. Lungs: Clear. Abdomen: Positive bowel sounds. There is left lower quadrant tenderness to palpation. No mass, rebound, or rigidity. Extremities: Negative for edema. IMPRESSION: 1. Acute uncomplicated diverticulitis. 2. Rule out sepsis secondary to diverticulitis. Await culture results. Continue empiric antibiotic coverage with ceftriaxone and Flagyl. GI evaluation. Thank you for the kind referral. CHERELLE ROSENTHAL M.D. ALIN/[id number]
[2020-06-14] MEDS: SODIUM CHLORIDE 1,000 ML IV SCH (18:27)
--- NOTE | 2020-06-14 18:31 | CON.GI ---
Consult Consult Specialty:: GI - History of Present Illness History of Present Illness: 49 y/o Male with PMH of diverticulitis 09/2019 went to the office yesterday with 10/10 pain. He was sent to ED for further evaluation and was noted to have a sigmoid diverticulitis. Today he was seen in the ED wiht mild improvement. 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 History of Recent Travel: No Home Medications - Allergies Allergies/Adverse Reactions: Allergies Allergy/AdvReac Type Severity Reaction Status Date / Time No Known Allergies Allergy Verified 06/13/20 17:31 - Home Medications Home Medications: Ambulatory Orders NK [No Known Home Medication] 06/13/20 Family Medical History Family Hx Coronary Artery Disease: Mother, Father (HTN) Family Hx Diabetes: Father Physical Exam-GI Vital Signs: Vital Signs Temperature 98.3 F 06/14/20 06:00 Pulse Rate 82 06/14/20 16:00 Respiratory Rate 20 06/14/20 16:00 Blood Pressure 116/78 06/14/20 16:00 O2 Sat by Pulse Oximetry (%) 100 06/14/20 16:00 Constitutional: Yes: Well Nourished Eyes: Yes: Conjunctiva Clear HENT: Yes: Atraumatic Neck: Yes: Supple Cardiovascular: Yes: Regular Rate and Rhythm Respiratory: Yes: CTA Bilaterally ...Palpate: Yes: Soft, Tenderness (-llq). No: Firm/Rigid, Guarding, Hepatomega ly, Mass, Pulsatile Mass, Splenomegaly Labs: CBC, BMP 06/14/20 05:45 06/14/20 05:45 INR, PTT INR 1.09 (0.83-1.09) 06/13/20 17:45 Problem List - Problems (1) Acute diverticulitis Assessment/Plan: R> maintain on clears continue antibiotics serial abdominal examination surgical consultation Code(s): K57.92 - DVTRCLI OF INTEST, PART UNSP, W/O PERF OR ABSCESS W/O BLEED
[2020-06-14 23:17] VITALS: BMI 28.4
[2020-06-15 07:10] LABS: BASO % 0.3 % (0-2.0); EOS % 1.7 % (0-4.5); HEMATOCRIT 39.1 % (35.4-49); HEMOGLOBIN 13.2 GM/dL (11.7-16.9); LYMPH % 18.9 % (8-40); MCH 28.6 pg (25.7-33.7); MCHC 33.8 g/dl (32.0-35.9); MEAN CELL VOLUME 84.8 fl (80-96); MEAN PLT VOLUME 9.8 fl (7.5-11.1); MONO % 9.9 % (3.8-10.2); NEUT % 69.2 % (42.8-82.8); PLATELET COUNT 152 K/MM3 (134-434); RBC 4.61 M/mm3 (4.00-5.60); RDW 14.3 % (11.9-15.9); WHITE BLOOD COUNT 11.9 K/mm3 (4.0-10.0)
[2020-06-15 07:34] LABS: POTASSIUM 3.6 mmol/L (3.5-5.1)
--- NOTE | 2020-06-15 07:39 | PN.GI ---
GI Progress Note Subjective: feeling better ; less abd pain ; tolerated clear liquid diet - Objective Vital Signs: Vital Signs Temperature 98.7 F 06/15/20 03:00 Pulse Rate 84 06/15/20 03:00 Respiratory Rate 20 06/15/20 03:00 Blood Pressure 104/68 06/15/20 03:00 O2 Sat by Pulse Oximetry (%) 96 06/15/20 03:00 Constitutional: Well Nourished, No Distress, Calm Eyes: Yes: WNL Cardiovascular: Yes: WNL, Regular Rate and Rhythm Respiratory: Yes: WNL, Regular, CTA Bilaterally Gastrointestinal Inspection: Yes: WNL ...Auscultate: Yes: Other (tender to deep palpation in the LLQ no rebound or guarding nml bs) Extremities: Yes: WNL Edema: No Labs: CBC, BMP 06/15/20 06:00 06/15/20 06:00 INR, PTT INR 1.09 (0.83-1.09) 06/13/20 17:45 Problem List - Problems (1) Abdominal pain Assessment/Plan: c/w clear liquid diet c/w abx - 10 day course outpt diagnostic colonoscopy in 8 weeks Code(s): R10.9 - UNSPECIFIED ABDOMINAL PAIN (2) Acute diverticulitis Code(s): K57.92 - DVTRCLI OF INTEST, PART UNSP, W/O PERF OR ABSCESS W/O BLEED
[2020-06-15 07:49] LABS: CALCIUM 8.7 mg/dL (8.5-10.1)
[2020-06-15 07:50] LABS: ALBUMIN 3.4 g/dl (3.4-5.0); BLOOD UREA NITROGEN 10.4 mg/dL (7-18)
[2020-06-15 07:53] LABS: CREATININE 0.9 mg/dL (0.55-1.3)
[2020-06-15 07:54] LABS: BILIRUBIN,TOTAL 1.5 mg/dL (0.2-1)
[2020-06-15] MEDS ORDERED: DEXTROSE 5%-WATER 100 ML IVPB ONE (09:00)
[2020-06-15] MEDS: PANTOPRAZOLE SODIUM 40 MG VIAL IVPUSH SCH (09:31)
[2020-06-15] MEDS: CEFTRIAXONE 2 GM in DEXTROSE 5%-WATER 100 ML IVPB SCH (09:33)
[2020-06-15] MEDS: ENOXAPARIN NA (PORCINE) 40 MG/0.4 ML DISP.SYRIN SQ SCH (09:34)
[2020-06-15] MEDS: SODIUM CHLORIDE 1,000 ML IV SCH ×2 (09:48→20:47)
[2020-06-15] MEDS ORDERED: FLU VACCINE (FLULAVAL) PF 60 MCG/0.5 ML SYRINGE 2020-2021 IM ONE (10:00)
--- NOTE | 2020-06-15 12:13 | CONSULT ---
Consult Consult Specialty:: Surgery Reason for Consultation:: acute diverticulitis - History of Present Illness Chief Complaint: LLQ abdominal pain History of Present Illness: This is a 49 y/o male with a significant PMHx of Diverticulitis (2019), GERD, Fa tty Liver. Who presents to the ED sent in from Dr Funes's office for LLQ pain. Patient reports having squeezing progressive pain increased on movement with nausea and belching x last night. Patient reports having a brief episode of diaphoresis and frontal headache the day before- now resolved. Patient reports eating pizza for dinner yesterday. Patient denies fever, chills, cough, SOB, dizziness, CP, palpitations, vomiting, diarrhea, constipation, melena, hematochezia, hematuria, dysuria. Patient denies recent sick contacts or travel. CT A/P in ED showed descending sigmoid colon junction diverticulitis w/o perforation. Currently with less pain. Had first attack of diverticulitis in 09/2019. - History Source History Provided By: Patient - Past Medical History Gastrointestinal: Yes: Diverticulitis, GERD Hepatobiliary: Yes: Other (Fatty Liver) - Past Surgical History Past Surgical History: Yes: None - Alcohol/Substance Use Hx Alcohol Use: Yes (social) History of Substance Use: reports: None - Smoking History Smoking history: Never smoked Aproximately how many cigarettes per day: 0 - Social History ADL: Independent Occupation: [employer] History of Recent Travel: No Home Medications - Allergies Allergies/Adverse Reactions: Allergies Allergy/AdvReac Type Severity Reaction Status Date / Time No Known Allergies Allergy Verified 06/13/20 17:31 - Home Medications Home Medications: Ambulatory Orders NK [No Known Home Medication] 06/13/20 Family Medical History Family Hx Coronary Artery Disease: Mother, Father (HTN) Family Hx Diabetes: Father Review of Systems - Review of Systems Constitutional: reports: No Symptoms Eyes: reports: No Symptoms HENT: reports: Other (noted bleeding from the tongue while brushing his teeth and cleaning his mouth) Neck: reports: No Symptoms Respiratory: reports: No Symptoms Gastrointestinal: reports: Abdominal Pain (LLQ) Physical Exam Vital Signs: Vital Signs Temperature 98.7 F 06/15/20 03:00 Pulse Rate 84 06/15/20 03:00 Respiratory Rate 20 06/15/20 08:54 Blood Pressure 104/68 06/15/20 03:00 O2 Sat by Pulse Oximetry (%) 96 06/15/20 08:54 Constitutional: Yes: Well Nourished, No Distress Eyes: Yes: Conjunctiva Clear HENT: Yes: Normocephalic Neck: Yes: Supple Cardiovascular: Yes: Regular Rate and Rhythm Respiratory: Yes: CTA Bilaterally Gastrointestinal: Yes: Soft, Tenderness (at LLQ on deep palpation) ...Rectal Exam: Yes: Deferred Labs: CBC, BMP 06/15/20 06:00 06/15/20 06:00 Imaging - Results Cat Scan: Report Reviewed, Image Reviewed Problem List - Problems (1) Acute diverticulitis Assessment/Plan: Recurrent uncomplicated acute diverticulitis responding to medical management Continue IV abx No immediate surgical intervention necessary at this time Repeat CT A/P if pain and leukocytosis worsen Code(s): K57.92 - DVTRCLI OF INTEST, PART UNSP, W/O PERF OR ABSCESS W/O BLEED
--- NOTE | 2020-06-15 16:23 | PN ---
Progress Note, Physician Chief Complaint: Diverticulitis LLQ pain History of Present Illness: Previous notes and events reviewed awake and alert NAD states abdominal pain is improving denies nausea/vomiting leukocytosis afebrile - Current Medication List Current Medications: Active Medications Enoxaparin Sodium (Lovenox -) 40 mg SQ DAILY [facility] Last Admin: 06/15/20 09:34 Dose: 40 mg Documented by: Ceftriaxone Sodium 2 gm/ (Dextrose) 100 mls @ 200 mls/hr IVPB DAILY [facility]; Protocol Last Admin: 06/15/20 09:33 Dose: 200 mls/hr Documented by: Metronidazole (Flagyl 500mg Premixed Ivpb -) 500 mg in 100 mls @ 100 mls/hr IVPB Q8H-IV [facility] Last Admin: 06/15/20 09:33 Dose: 100 mls/hr Documented by: Sodium Chloride (Normal Saline -) 1,000 mls @ 125 mls/hr IV [facility]IR [facility] Stop: 06/17/20 06:14 Last Admin: 06/15/20 09:48 Dose: 125 mls/hr Documented by: Morphine Sulfate (Morphine Sulfate) 2 mg IVPUSH Q6H PRN PRN Reason: PAIN LEVEL 7 - 10 Last Admin: 06/14/20 22:23 Dose: 2 mg Documented by: Ondansetron HCl (Zofran Injection) 4 mg IVPUSH Q6H PRN PRN Reason: NAUSEA AND/OR VOMITING Last Admin: 06/14/20 04:07 Dose: 4 mg Documented by: Pantoprazole Sodium (Protonix Iv) 40 mg IVPUSH DAILY [facility] Last Admin: 06/15/20 09:31 Dose: 40 mg Documented by: - Objective Vital Signs: Vital Signs Temperature 98.4 F 06/15/20 14:00 Pulse Rate 80 06/15/20 14:00 Respiratory Rate 20 06/15/20 14:00 Blood Pressure 124/69 06/15/20 14:00 O2 Sat by Pulse Oximetry (%) 96 06/15/20 14:00 Constitutional: Yes: No Distress, Calm Eyes: Yes: Conjunctiva Clear HENT: Yes: Atraumatic Cardiovascular: Yes: Regular Rate and Rhythm Respiratory: Yes: Regular, CTA Bilaterally Gastrointestinal: Yes: Normal Bowel Sounds, Soft, Tenderness (LLQ) Musculoskeletal: Yes: WNL Extremities: Yes: WNL Edema: No Neurological: Yes: Alert, Oriented Psychiatric: Yes: Alert, Oriented Labs: CBC, BMP 06/15/20 06:00 06/15/20 06:00 INR, PTT INR 1.09 (0.83-1.09) 06/13/20 17:45 Microbiology 06/14/20 17:15 Blood - Peripheral Venous Blood Culture - Preliminary NO GROWTH OBTAINED AFTER 24 HOURS, INCUBATION TO CONTINUE FOR 4 DAYS. 06/14/20 17:15 Blood - Peripheral Venous Blood Culture - Preliminary NO GROWTH OBTAINED AFTER 24 HOURS, INCUBATION TO CONTINUE FOR 4 DAYS. 06/13/20 20:06 Urine - Urine Clean Catch Urine Culture - Final NO GROWTH OBTAINED Problem List - Problems (1) Abdominal pain Assessment/Plan: GI on board leukocytosis CTAP shows recurrent acute uncomplicated diverticulitis involving the left colon, prominent diffuse hepatic steatosis, visualization of a stable 2mm calcification within or abutting the posterior wall of the thecal sac at the level of L3 vertebral body, CT correlation with outpatient contrast enhanced MRI is suggested to exclude a lesion such as a small meningioma Clear liquid diet Code(s): R10.9 - UNSPECIFIED ABDOMINAL PAIN (2) Acute diverticulitis Assessment/Plan: GI on board leukocytosis CTAP shows recurrent acute uncomplicated diverticulitis involving the left c olon, prominent diffuse hepatic steatosis, visualization of a stable 2mm calcification within or abutting the posterior wall of the thecal sac at the level of L3 vertebral body, CT correlation with outpatient contrast enhanced MRI is suggested to exclude a lesion such as a small meningioma Clear liquid diet Surgery on board if leukocytosis continue to show uptrend repeat CTAP DericeftrAlcides queen ID on board Code(s): K57.92 - DVTRCLI OF INTEST, PART UNSP, W/O PERF OR ABSCESS W/O BLEED (3) GERD (gastroesophageal reflux disease) Assessment/Plan: Pantoprazole Code(s): K21.9 - GASTRO-ESOPHAGEAL REFLUX DISEASE WITHOUT ESOPHAGITIS Assessment/Plan see problem list dvt ppx
[2020-06-16] MEDS: SODIUM CHLORIDE 1,000 ML IV SCH (04:39)
--- NOTE | 2020-06-16 07:19 | PN.GI ---
GI Progress Note Subjective: FEELING BETTER STILL WITH SOME ABD PAIN - NO N/V TOLERATED CLEAR LIQUID DIET - Objective Vital Signs: Vital Signs Temperature 99.5 F 06/15/20 22:00 Pulse Rate 76 06/15/20 22:00 Respiratory Rate 18 06/15/20 22:00 Blood Pressure 120/80 06/15/20 22:00 O2 Sat by Pulse Oximetry (%) 95 06/15/20 22:00 Constitutional: Well Nourished Neck: Yes: WNL Cardiovascular: Yes: WNL Respiratory: Yes: WNL Gastrointestinal Inspection: Yes: WNL ...Auscultate: Yes: Normoactive Bowel Sounds, Other (LESS TENDER IN THE LLQ - NO REBOUND OR GUARDING) Labs: CBC, BMP 06/15/20 06:00 06/15/20 06:00 INR, PTT INR 1.09 (0.83-1.09) 06/13/20 17:45 Problem List - Problems (1) Abdominal pain Assessment/Plan: c/w clear liquid diet ; ORDERED FULL LIQUID DIET FOR TOMORROW MORNING c/w abx - 10 day course outpt diagnostic colonoscopy in 8 weeks Code(s): R10.9 - UNSPECIFIED ABDOMINAL PAIN (2) Acute diverticulitis Code(s): K57.92 - DVTRCLI OF INTEST, PART UNSP, W/O PERF OR ABSCESS W/O BLEED
[2020-06-16 09:23] LABS: HEMATOCRIT 39.6 % (35.4-49); HEMOGLOBIN 13.3 GM/dL (11.7-16.9); MCH 28.6 pg (25.7-33.7); MCHC 33.6 g/dl (32.0-35.9); MEAN CELL VOLUME 85.2 fl (80-96); MEAN PLT VOLUME 9.4 fl (7.5-11.1); PLATELET COUNT 155 K/MM3 (134-434); RBC 4.65 M/mm3 (4.00-5.60); RDW 14.5 % (11.9-15.9); WHITE BLOOD COUNT 8.9 K/mm3 (4.0-10.0)
[2020-06-16] MEDS ORDERED: DEXTROSE 5%-WATER 100 ML IVPB ONE (09:37)
[2020-06-16] MEDS: PANTOPRAZOLE SODIUM 40 MG VIAL IVPUSH SCH (09:46)
[2020-06-16 09:47] LABS: POTASSIUM 3.7 mmol/L (3.5-5.1)
[2020-06-16] MEDS: ENOXAPARIN NA (PORCINE) 40 MG/0.4 ML DISP.SYRIN SQ SCH (09:48)
[2020-06-16 09:57] LABS: ALBUMIN 3.2 g/dl (3.4-5.0); BLOOD UREA NITROGEN 9.1 mg/dL (7-18); CALCIUM 8.3 mg/dL (8.5-10.1)
[2020-06-16 10:00] LABS: CREATININE 0.9 mg/dL (0.55-1.3)
[2020-06-16 10:01] LABS: TOT PROT 6.7 g/dl (6.4-8.2)
[2020-06-16] MEDS: CEFTRIAXONE 2 GM in DEXTROSE 5%-WATER 100 ML IVPB SCH (11:02)
--- NOTE | 2020-06-16 11:25 | PN ---
Progress Note, Physician Chief Complaint: acute diverticulitis History of Present Illness: Has less pain (pain score = 2 - 3) Tolerating clear liquids and has soft stools - Current Medication List Current Medications: Active Medications Enoxaparin Sodium (Lovenox -) 40 mg SQ DAILY [facility] Last Admin: 06/16/20 09:48 Dose: 40 mg Documented by: Ceftriaxone Sodium 2 gm/ (Dextrose) 100 mls @ 200 mls/hr IVPB DAILY [facility]; Protocol Last Admin: 06/16/20 11:02 Dose: 200 mls/hr Documented by: Metronidazole (Flagyl 500mg Premixed Ivpb -) 500 mg in 100 mls @ 100 mls/hr IVPB Q8H-IV [facility] Last Admin: 06/16/20 09:45 Dose: 100 mls/hr Documented by: Sodium Chloride (Normal Saline -) 1,000 mls @ 125 mls/hr IV [facility]IR [facility] Stop: 06/17/20 06:14 Last Admin: 06/16/20 04:39 Dose: 125 mls/hr Documented by: Morphine Sulfate (Morphine Sulfate) 2 mg IVPUSH Q6H PRN PRN Reason: PAIN LEVEL 7 - 10 Last Admin: 06/14/20 22:23 Dose: 2 mg Documented by: Ondansetron HCl (Zofran Injection) 4 mg IVPUSH Q6H PRN PRN Reason: NAUSEA AND/OR VOMITING Last Admin: 06/14/20 04:07 Dose: 4 mg Documented by: Pantoprazole Sodium (Protonix Iv) 40 mg IVPUSH DAILY [facility] Last Admin: 06/16/20 09:46 Dose: 40 mg Documented by: - Objective Vital Signs: Vital Signs Temperature 98.6 F 06/16/20 06:00 Pulse Rate 70 06/16/20 06:00 Respiratory Rate 20 06/16/20 06:00 Blood Pressure 113/62 06/16/20 06:00 O2 Sat by Pulse Oximetry (%) 98 06/16/20 06:00 Constitutional: Yes: No Distress Gastrointestinal: Yes: Soft, Tenderness (decreased LLQ tenderness) Labs: CBC, BMP 06/16/20 07:40 06/16/20 07:40 INR, PTT INR 1.09 (0.83-1.09) 06/13/20 17:45 Problem List - Problems (1) Acute diverticulitis Assessment/Plan: resolving recurrent uncomplicated diverticulitis continue abx Rx Code(s): K57.92 - DVTRCLI OF INTEST, PART UNSP, W/O PERF OR ABSCESS W/O BLEED
--- NOTE | 2020-06-16 14:24 | PN ---
Progress Note, Physician Chief Complaint: Diverticulitis LLQ pain History of Present Illness: Previous notes and events reviewed awake and alert NAD states abdominal pain is improving--10/09 denies nausea/vomiting no leukocytosis afebrile - Current Medication List Current Medications: Active Medications Enoxaparin Sodium (Lovenox -) 40 mg SQ DAILY [facility] Last Admin: 06/16/20 09:48 Dose: 40 mg Documented by: Ceftriaxone Sodium 2 gm/ (Dextrose) 100 mls @ 200 mls/hr IVPB DAILY [facility]; Protocol Last Admin: 06/16/20 11:02 Dose: 200 mls/hr Documented by: Metronidazole (Flagyl 500mg Premixed Ivpb -) 500 mg in 100 mls @ 100 mls/hr IVPB Q8H-IV [facility] Last Admin: 06/16/20 09:45 Dose: 100 mls/hr Documented by: Sodium Chloride (Normal Saline -) 1,000 mls @ 125 mls/hr IV [facility] Stop: 06/17/20 06:14 Last Admin: 06/16/20 04:39 Dose: 125 mls/hr Documented by: Morphine Sulfate (Morphine Sulfate) 2 mg IVPUSH Q6H PRN PRN Reason: PAIN LEVEL 7 - 10 Last Admin: 06/14/20 22:23 Dose: 2 mg Documented by: Ondansetron HCl (Zofran Injection) 4 mg IVPUSH Q6H PRN PRN Reason: NAUSEA AND/OR VOMITING Last Admin: 06/14/20 04:07 Dose: 4 mg Documented by: Pantoprazole Sodium (Protonix Iv) 40 mg IVPUSH DAILY [facility] Last Admin: 06/16/20 09:46 Dose: 40 mg Documented by: - Objective Vital Signs: Vital Signs Temperature 98.6 F 06/16/20 06:00 Pulse Rate 70 06/16/20 06:00 Respiratory Rate 20 06/16/20 06:00 Blood Pressure 113/62 06/16/20 06:00 O2 Sat by Pulse Oximetry (%) 98 06/16/20 06:00 Constitutional: Yes: No Distress, Calm Eyes: Yes: Conjunctiva Clear HENT: Yes: Atraumatic Cardiovascular: Yes: Regular Rate and Rhythm Respiratory: Yes: Regular, CTA Bilaterally Gastrointestinal: Yes: Normal Bowel Sounds, Soft, Tenderness (llq) Musculoskeletal: Yes: WNL Extremities: Yes: WNL Edema: No Neurological: Yes: Alert, Oriented Psychiatric: Yes: Alert, Oriented Labs: CBC, BMP 06/16/20 07:40 06/16/20 07:40 INR, PTT INR 1.09 (0.83-1.09) 06/13/20 17:45 Microbiology 06/14/20 17:15 Blood - Peripheral Venous Blood Culture - Preliminary NO GROWTH OBTAINED AFTER 24 HOURS, INCUBATION TO CONTINUE FOR 4 DAYS. 06/14/20 17:15 Blood - Peripheral Venous Blood Culture - Preliminary NO GROWTH OBTAINED AFTER 24 HOURS, INCUBATION TO CONTINUE FOR 4 DAYS. 06/13/20 20:06 Urine - Urine Clean Catch Urine Culture - Final NO GROWTH OBTAINED Problem List - Problems (1) Abdominal pain Assessment/Plan: GI on board no leukocytosis CTAP shows recurrent acute uncomplicated diverticulitis involving the left colon, prominent diffuse hepatic steatosis, visualization of a stable 2mm calcification within or abutting the posterior wall of the thecal sac at the [place] of L3 vertebral body, CT correlation with outpatient contrast enhanced MRI is suggested to exclude a lesion such as a small meningioma Clear liquid diet Code(s): R10.9 - UNSPECIFIED ABDOMINAL PAIN (2) Acute diverticulitis Assessment/Plan: GI on board no leukocytosis CTAP shows recurrent acute uncomplicated diverticulitis involving the left colon, prominent diffuse hepatic steatosis, visualization of a stable 2mm calcification within or abutting the posterior wall of the thecal sac at the level of L3 vertebral body, CT correlation with outpatient contrast enhanced MRI is suggested to exclude a lesion such as a small meningioma Clear liquid diet Surgery on board if leukocytosis continue to show uptrend repeat CTAP Ceftriaxone, Flagyl ID on board Code(s): K57.92 - DVTRCLI OF INTEST, PART UNSP, W/O PERF OR ABSCESS W/O BLEED (3) GERD (gastroesophageal reflux disease) Assessment/Plan: Pantoprazole Code(s): K21.9 - GASTRO-ESOPHAGEAL REFLUX DISEASE WITHOUT ESOPHAGITIS Assessment/Plan see problem list dvt ppx
[2020-06-17] MEDS: SODIUM CHLORIDE 1,000 ML IV SCH (00:06)
[2020-06-17 07:57] LABS: HEMATOCRIT 40.7 % (35.4-49); HEMOGLOBIN 13.3 GM/dL (11.7-16.9); MCH 27.5 pg (25.7-33.7); MCHC 32.6 g/dl (32.0-35.9); MEAN CELL VOLUME 84.4 fl (80-96); MEAN PLT VOLUME 9.2 fl (7.5-11.1); PLATELET COUNT 173 K/MM3 (134-434); RBC 4.82 M/mm3 (4.00-5.60); RDW 14.5 % (11.9-15.9); WHITE BLOOD COUNT 7.8 K/mm3 (4.0-10.0)
[2020-06-17 08:23] LABS: POTASSIUM 3.7 mmol/L (3.5-5.1)
[2020-06-17 08:30] LABS: ALBUMIN 3.2 g/dl (3.4-5.0); BLOOD UREA NITROGEN 7.8 mg/dL (7-18); CALCIUM 8.7 mg/dL (8.5-10.1)
[2020-06-17 08:33] LABS: CREATININE 0.8 mg/dL (0.55-1.3)
[2020-06-17 08:35] LABS: BILIRUBIN,TOTAL 0.7 mg/dL (0.2-1); TOT PROT 6.9 g/dl (6.4-8.2)
[2020-06-17] MEDS ORDERED: DEXTROSE 5%-WATER 100 ML IVPB ONE (09:52)
--- NOTE | 2020-06-17 10:32 | PN ---
Progress Note, Physician Chief Complaint: Diverticulitis Abd pain History of Present Illness: 49 year old male came in to [facility] ER for severe intractable LLQ abd pain + nausea after he ate pizza. Upon evaluation, CTAP showed left colon diverticulitis. Started on IV rocephin and flagyl NAD Pain LLQ only on deep palpation /10 Tolerating full liquids - Current Medication List Current Medications: Active Medications Enoxaparin Sodium (Lovenox -) 40 mg SQ DAILY [facility] Last Admin: 06/16/20 09:48 Dose: 40 mg Documented by: Ceftriaxone Sodium 2 gm/ (Dextrose) 100 mls @ 200 mls/hr IVPB DAILY [facility]; Protocol Last Admin: 06/16/20 11:02 Dose: 200 mls/hr Documented by: Metronidazole (Flagyl 500mg Premixed Ivpb -) 500 mg in 100 mls @ 100 mls/hr IVPB Q8H-IV [facility] Last Admin: 06/17/20 01:56 Dose: 100 mls/hr Documented by: Ondansetron HCl (Zofran Injection) 4 mg IVPUSH Q6H PRN PRN Reason: NAUSEA AND/OR VOMITING Last Admin: 06/14/20 04:07 Dose: 4 mg Documented by: Pantoprazole Sodium (Protonix Iv) 40 mg IVPUSH DAILY [facility] Last Admin: 06/16/20 09:46 Dose: 40 mg Documented by: - Objective Vital Signs: Vital Signs Temperature 98.6 F 06/17/20 06:00 Pulse Rate 66 06/17/20 06:00 Respiratory Rate 20 06/17/20 06:00 Blood Pressure 110/64 06/17/20 06:00 O2 Sat by Pulse Oximetry (%) 95 06/17/20 06:00 Constitutional: Yes: Well Nourished, No Distress, Calm Cardiovascular: Yes: Regular Rate and Rhythm Respiratory: Yes: Regular, CTA Bilaterally Gastrointestinal: Yes: Normal Bowel Sounds, Soft Genitourinary: Yes: WNL Musculoskeletal: Yes: WNL Extremities: Yes: WNL Edema: No Peripheral Pulses WNL: Yes Neurological: Yes: Alert, Oriented Psychiatric: Yes: Alert, Oriented Labs: CBC, BMP 06/17/20 07:00 06/17/20 07:00 INR, PTT INR 1.09 (0.83-1.09) 10/15/20 17:45 Problem List - Problems (1) Abdominal pain Problems reviewed: Yes Code(s): R10.9 - UNSPECIFIED ABDOMINAL PAIN (2) Acute diverticulitis Assessment/Plan: -IV rocephin -IV flagyl -Advance diet to regular -PPI -If tolerated, d/c pt home on flagyl tid x 7 days Problems reviewed: Yes Code(s): K57.92 - DVTRCLI OF INTEST, PART UNSP, W/O PERF OR ABSCESS W/O BLEED Assessment/Plan See problem list
[2020-06-17] MEDS: CEFTRIAXONE 2 GM in DEXTROSE 5%-WATER 100 ML IVPB SCH (10:36)
[2020-06-17] MEDS: ENOXAPARIN NA (PORCINE) 40 MG/0.4 ML DISP.SYRIN SQ SCH (10:37)
[2020-06-17] MEDS: PANTOPRAZOLE SODIUM 40 MG VIAL IVPUSH SCH (10:37)
--- NOTE | 2020-06-17 12:09 | PN.GI ---
GI Progress Note Subjective: Pt states abdominal pain is improving -09/08. Tolerating clear liquid diet. Denies N/V, denies diarrhea. One episode of soft BM today. - Objective Vital Signs: Vital Signs Temperature 98.6 F 06/17/20 06:00 Pulse Rate 66 06/17/20 06:00 Respiratory Rate 20 06/17/20 06:00 Blood Pressure 110/64 06/17/20 06:00 O2 Sat by Pulse Oximetry (%) 95 06/17/20 06:00 Constitutional: Well Nourished, No Distress, Calm Eyes: Yes: WNL, Conjunctiva Clear, EOM Intact HENT: Yes: WNL, Atraumatic, Normocephalic Neck: Yes: WNL, Supple, Trachea Midline Cardiovascular: Yes: WNL, Regular Rate and Rhythm Respiratory: Yes: WNL, Regular, CTA Bilaterally Gastrointestinal Inspection: Yes: WNL ...Auscultate: Yes: Normoactive Bowel Sounds ...Palpate: Yes: Soft, Tenderness (LLQ on deep palpation). No: Firm/Rigid, Guarding, Hepatomegaly, Mass, Pulsatile Mass, Splenomegaly Labs: CBC, BMP 06/17/20 07:00 06/17/20 07:00 INR, PTT INR 1.09 (0.83-1.09) 06/13/20 17:45 Problem List - Problems (1) Acute diverticulitis Assessment/Plan: plan discussed with Dr Funes -D/c all IV abx -will switch to PO Abx if solid food tolerated -Cipro 500mg BID x 7 days -Flagyl 250mg TID x 14 days -advance diet to low fibre lactose free diet -Pt made aware to f/u Code(s): K57.92 - DVTRCLI OF INTEST, PART UNSP, W/O PERF OR ABSCESS W/O BLEED
[2020-06-17 15:57] VITALS: BP 110/70; PULSE 79; TEMP 98.8
== END 2020-06-17 18:51 | disposition home or self-care (01) | DRG 244 ==
LOC: JER 16:55 → SUPCPDRO 16:55 → JERBED 19:07 → J8W 06-14 21:34
PROVIDERS: ADMIT Internal Medicine; ATTEND Family Medicine
DX: K57.92 Diverticulitis of intestine, part unspecified, without perforation or abscess without bleeding (principal); R10.32 Left lower quadrant pain; K21.9 Gastro-esophageal reflux disease without esophagitis; R11.0 Nausea; D72.829 Elevated white blood cell count, unspecified; K76.0 Fatty (change of) liver, not elsewhere classified; E66.9 Obesity, unspecified; Z68.28 Body mass index [BMI] 28.0-28.9, adult
CPT/HCPCS: 36415; 71045-TC-FY; 74177-TC; 80053; 81003; 83605; 85025; 85027; 85610; 85730; 86850; 86900; 86901; 87040; 87086; 93005; 93010; 99285-25; C9803; Q2036; Q9967; U0003

== ENCOUNTER 2022-08-05 22:42 | Observation (INO) | payer OTHER ==
[2022-08-06] MEDS ORDERED: ACETAMINOPHEN 1000 MG/100 ML BAG IVPB ONE (00:52)
[2022-08-06] MEDS ORDERED: LACTATED RINGERS SOLUTION 1000 ML INFUS.BAG IV ONE (01:01)
[2022-08-06] MEDS ORDERED: ACETAMINOPHEN INJECTION 100 ML IVPB ONE (01:03)
[2022-08-06 01:27] LABS: BASO % 0.5 % (0-2.0); EOS % 0.4 % (0-4.5); HEMATOCRIT 43.2 % (35.4-49); HEMOGLOBIN 14.1 GM/dL (11.7-16.9); LYMPH % 14.9 % (8-40); MCH 27.5 pg (25.7-33.7); MCHC 32.5 g/dl (32.0-35.9); MEAN CELL VOLUME 84.6 fl (80-96); MONO % 8.7 % (3.8-10.2); NEUT % 75.5 % (42.8-82.8); PLATELET COUNT 186 10^3/uL (134-434); RBC 5.11 M/mm3 (4.00-5.60); WHITE BLOOD COUNT 12.1 K/mm3 (4.0-10.0)
[2022-08-06 01:40] LABS: URINE APPEARANCE CLEAR; URINE BILIRUBIN NEGATIVE (NEGATIVE); URINE COLOR YELLOW; URINE GLUCOSE (UA) NEGATIVE (NEGATIVE); URINE KETONE 1+ (NEGATIVE); URINE LEUK ESTERASE NEGATIVE (NEGATIVE); URINE NITRITE NEGATIVE (NEGATIVE); URINE PROTEIN TRACE (NEGATIVE)
[2022-08-06 01:40] LABS: INR 1.28 (0.83-1.09); PROTHROMBIN TIME (PATIENT) 14.8 SEC (9.7-13.0)
[2022-08-06 01:43] LABS: ACTIVATED PTT 30.8 SECONDS (25.2-36.5)
[2022-08-06] MEDS ORDERED: PIPERACILLIN/TAZOB 4.5 GM 4.5 GM in DEXTROSE 5%-WATER 100 ML IVPB ONE (01:45)
[2022-08-06 01:48] LABS: CALCIUM 9.1 mg/dL (8.5-10.1)
[2022-08-06 01:49] LABS: ALBUMIN 3.9 g/dl (3.4-5.0); BLOOD UREA NITROGEN 15.4 mg/dL (7-18)
[2022-08-06 01:52] LABS: BILIRUBIN,TOTAL 1.5 mg/dL (0.2-1); TOT PROT 7.5 g/dl (6.4-8.2)
[2022-08-06 02:49] LABS: CALCIUM 8.8 mg/dL (8.5-10.1)
[2022-08-06] MEDS ORDERED: PIPERACILLIN/TAZOB 4.5 GM 4.5 GM/100 ML BAG IVPB ONE (03:19)
[2022-08-06] MEDS ORDERED: CIPROFLOXACIN 400 MG/D5W 400 MG/200 ML IVPB IVPB ONE (04:33)
[2022-08-06 06:42] LABS: BILIRUBIN,DIRECT 0.4 mg/dL (0.0-0.2)
[2022-08-06] MEDS ORDERED: ACETAMINOPHEN 325 MG TABLET (FP) PO PRN (07:30)
[2022-08-06] MEDS ORDERED: ACETAMINOPHEN 1000 MG/100 ML BAG IVPB SCH (07:30)
[2022-08-06] MEDS ORDERED: PANTOPRAZOLE SODIUM 40 MG in SODIUM CHLORIDE 100 ML IVPUSH SCH (10:00)
[2022-08-06] MEDS ORDERED: PANTOPRAZOLE SODIUM 40 MG VIAL IVPUSH SCH (10:15)
[2022-08-06] MEDS ORDERED: cefTRIAXone SODIUM 1 GM VIAL ONE (10:48)
[2022-08-06] MEDS: CEFTRIAXONE 1 GM in DEXTROSE 5%-WATER - 50 ML IVPB SCH (10:58)
[2022-08-06] MEDS: ENOXAPARIN NA (PORCINE) 40 MG/0.4 ML DISP.SYRIN SQ SCH (11:00)
[2022-08-06] MEDS: ACETAMINOPHEN 1000 MG/100 ML BAG IVPB PRN ×2 (11:41→23:29)
[2022-08-06] MEDS: MONTELUKAST NA 10 MG TABLET PO SCH (23:28)
[2022-08-07] MEDS: ENOXAPARIN NA (PORCINE) 40 MG/0.4 ML DISP.SYRIN SQ SCH (10:05)
[2022-08-07] MEDS: CEFTRIAXONE 1 GM in DEXTROSE 5%-WATER - 50 ML IVPB SCH (10:05)
[2022-08-07] MEDS: PANTOPRAZOLE 40 MG TABLET PO SCH (10:05)
[2022-08-07 10:08] LABS: HEMATOCRIT 39.1 % (35.4-49); MCH 28.2 pg (25.7-33.7); MCHC 33.3 g/dl (32.0-35.9); MEAN CELL VOLUME 84.8 fl (80-96); MEAN PLT VOLUME 9.3 fl (7.5-11.1); PLATELET COUNT 180 10^3/uL (134-434); RBC 4.61 M/mm3 (4.00-5.60); RDW 14.6 % (11.9-15.9); WHITE BLOOD COUNT 11.1 K/mm3 (4.0-10.0)
[2022-08-07 10:52] LABS: CALCIUM 8.7 mg/dL (8.5-10.1)
[2022-08-07 10:53] LABS: BLOOD UREA NITROGEN 12.4 mg/dL (7-18)
[2022-08-07] MEDS: MONTELUKAST NA 10 MG TABLET PO SCH (22:21)
[2022-08-08] MEDS: ACETAMINOPHEN 500 MG TABLET (FP) PO PRN ×2 (04:15→21:25)
[2022-08-08 07:28] VITALS: RESP 20
[2022-08-08] MEDS: CEFTRIAXONE 1 GM in DEXTROSE 5%-WATER - 50 ML IVPB SCH (09:46)
[2022-08-08] MEDS: ENOXAPARIN NA (PORCINE) 40 MG/0.4 ML DISP.SYRIN SQ SCH (09:47)
[2022-08-08] MEDS: PANTOPRAZOLE 40 MG TABLET PO SCH (09:47)
[2022-08-08 10:21] LABS: BASO % 0.6 % (0-2.0); EOS % 2.1 % (0-4.5); HEMATOCRIT 41.5 % (35.4-49); HEMOGLOBIN 13.6 GM/dL (11.7-16.9); LYMPH % 21.5 % (8-40); MCHC 32.9 g/dl (32.0-35.9); MEAN CELL VOLUME 85.2 fl (80-96); MEAN PLT VOLUME 9.1 fl (7.5-11.1); MONO % 9.5 % (3.8-10.2); NEUT % 66.3 % (42.8-82.8); PLATELET COUNT 202 10^3/uL (134-434); RBC 4.87 M/mm3 (4.00-5.60); RDW 14.7 % (11.9-15.9); WHITE BLOOD COUNT 9.1 K/mm3 (4.0-10.0)
[2022-08-08 12:20] LABS: BLOOD UREA NITROGEN 13.8 mg/dL (7-18)
[2022-08-08 12:21] LABS: ALBUMIN 3.3 g/dl (3.4-5.0)
[2022-08-08 12:24] LABS: BILIRUBIN,TOTAL 0.7 mg/dL (0.2-1)
[2022-08-08 14:09] VITALS: BMI 32.1
[2022-08-08] MEDS: MONTELUKAST NA 10 MG TABLET PO SCH (21:17)
[2022-08-09] MEDS: CEFTRIAXONE 1 GM in DEXTROSE 5%-WATER - 50 ML IVPB SCH (10:06)
[2022-08-09] MEDS: ENOXAPARIN NA (PORCINE) 40 MG/0.4 ML DISP.SYRIN SQ SCH (10:06)
[2022-08-09] MEDS: PANTOPRAZOLE 40 MG TABLET PO SCH (10:06)
[2022-08-09 12:55] VITALS: BP 132/85; PULSE 75; TEMP 98.8
== END 2022-08-09 14:12 | disposition home or self-care (01) ==
LOC: JER 22:42 → JERBED 08-06 04:40 → INTOOBSV 08-06 04:40 → J8W 08-06 07:40
PROVIDERS: ADMIT Internal Medicine; ATTEND Internal Medicine
PROC: 3E03329 Introduction of Other Anti-infective into Peripheral Vein, Percutaneous Approach (ICD-10-PCS; principal; 2022-08-06)
PROC: 3E033NZ Introduction of Analgesics, Hypnotics, Sedatives into Peripheral Vein, Percutaneous Approach (ICD-10-PCS; 2022-08-06)
PROC: 3E023GC Introduction of Other Therapeutic Substance into Muscle, Percutaneous Approach (ICD-10-PCS; 2022-08-06)
PROC: 3E0337Z Introduction of Electrolytic and Water Balance Substance into Peripheral Vein, Percutaneous Approach (ICD-10-PCS; 2022-08-06)
DX: K57.92 Diverticulitis of intestine, part unspecified, without perforation or abscess without bleeding (principal); I10 Essential (primary) hypertension; R73.03 Prediabetes; M54.16 Radiculopathy, lumbar region; K76.0 Fatty (change of) liver, not elsewhere classified; R11.10 Vomiting, unspecified; R50.9 Fever, unspecified; K21.9 Gastro-esophageal reflux disease without esophagitis; E66.8 Other obesity; Z68.32 Body mass index [BMI] 32.0-32.9, adult; J45.909 Unspecified asthma, uncomplicated
CPT/HCPCS: 0241U-QW; 36415; 74177-TC; 80048; 80053; 81003; 82248; 83605; 85025; 85027; 85610; 85730; 86850; 86900; 86901; 87086; 93005; 93010; 99285-25; G0378; Q9967

== ENCOUNTER 2025-02-23 03:56 | Emergency (ER) | payer OTHER ==
[2025-02-23 04:01] VITALS: BMI 30.7
[2025-02-23] MEDS ORDERED: MAG HYDROX/AL HYDROX/SIMETH 30 ML UNIT-DOSE CUP ONE ×2 (04:13→05:14)
[2025-02-23] MEDS ORDERED: ACETAMINOPHEN INJECTION 100 ML ONE (04:13)
[2025-02-23] MEDS ORDERED: FAMOTIDINE 20 MG/50 ML IVPB 20 MG/50 ML MG IVPB ONE (04:14)
[2025-02-23] MEDS: ACETAMINOPHEN 1000 MG/100 ML BAG IVPB ONE (04:37)
[2025-02-23] MEDS: MAG HYDROX/AL HYDROX/SIMETH 30 ML UNIT-DOSE CUP PO ONE (04:37)
[2025-02-23] MEDS: FAMOTIDINE 20 MG/50 ML IVPB 20 MG/50 ML MG IVPB ONE (04:38)
[2025-02-23 04:42] LABS: ABSOLUTE IMMATURE GRANULOCYTES 0.02 x10^3/uL (0.0-0.031); BASOPHILS # 0.04 x10^3/uL (0.01-0.08); EOSINOPHIL % 1.8 % (0.8-7.0); EOSINOPHILS # 0.12 x10^3/uL (0.04-0.54); HEMATOCRIT 43.9 % (40.1-51.0); HEMOGLOBIN 14.3 g/dL (13.7-17.5); MCHC 32.6 g/dl (32.3-36.5); MEAN CELL VOLUME 85.4 fl (79.0-92.2); MEAN PLT VOLUME 10.5 fl (9.4-12.4); MONOCYTE # 0.58 x10^3/uL (0.30-0.82); MONOCYTE % 8.7 % (5.3-12.2); PLATELET COUNT 197 x10^3/uL (163-337)
[2025-02-23] MEDS: SODIUM CHLORIDE 0.9% 500 ML INFUS.BAG IV ONE (04:49)
[2025-02-23 05:02] LABS: POTASSIUM 3.5 mmol/L (3.5-5.1)
[2025-02-23 05:04] LABS: BLOOD UREA NITROGEN 12.5 mg/dL (7-18); CALCIUM 9.6 mg/dL (8.5-10.1)
[2025-02-23 05:07] LABS: CREATININE 1.2 mg/dL (0.55-1.3)
[2025-02-23 05:09] LABS: BILIRUBIN,TOTAL 0.6 mg/dL (0.2-1); TOT PROT 7.4 g/dl (6.4-8.2)
[2025-02-23] MEDS ORDERED: IBUPROFEN 600 MG TABLET (FP) PO ONE (05:55)
[2025-02-23 06:11] LABS: HCV DIAGNOSTIC IN-HOUSE W/RFLX NON-REACTIVE (NONREACTIVE); HIV INTERPRETATION NEGATIVE (NEGATIVE)
[2025-02-23 06:34] VITALS: BP 135/86; PULSE 52; RESP 16; TEMP 97.6
[2025-02-23] MEDS: ONDANSETRON 4 MG/2 ML VIAL IVPUSH ONE (06:56)
[2025-02-23] MEDS ORDERED: ONDANSETRON 4 MG/2 ML VIAL ONE (06:57)
== END 2025-02-23 08:22 | disposition home or self-care (01) ==
LOC: JER 03:56
PROC: 3E033GC Introduction of Other Therapeutic Substance into Peripheral Vein, Percutaneous Approach (ICD-10-PCS; principal; 2025-02-23)
PROC: 3E033GC Introduction of Other Therapeutic Substance into Peripheral Vein, Percutaneous Approach (ICD-10-PCS; 2025-02-23)
PROC: 3E033NZ Introduction of Analgesics, Hypnotics, Sedatives into Peripheral Vein, Percutaneous Approach (ICD-10-PCS; 2025-02-23)
DX: R10.13 Epigastric pain (principal); R11.2 Nausea with vomiting, unspecified; R14.3 Flatulence
CPT/HCPCS: 36415; 71046-TC-FY; 80053; 83690; 83735; 84484; 85025; 86803; 87389; 93005; 93010; 99285-25